=== PATIENT | male | born 1995 | race Hispanic/Latino ===

== ENCOUNTER 2025-04-13 14:32 | Emergency (ER) | payer OTHER ==
[2025-04-13] MEDS ORDERED: ONDANSETRON 4 MG/2 ML VIAL ONE (14:48)
[2025-04-13] MEDS ORDERED: NA CHLORIDE 0.9% 1,000 ML ONE (14:48)
[2025-04-13] MEDS ORDERED: MORPHINE 4 MG/ML SYR ONE (14:48)
[2025-04-13] MEDS ORDERED: CEFAZOLIN SODIUM 2 GM/VIAL ONE (14:49)
[2025-04-13] MEDS ORDERED: NA CHLORIDE 0.9% 100 ML ONE ×2 (14:49→14:52)
[2025-04-13] MEDS ORDERED: TRANEXAMIC ACID 1,000 MG/10 ML VIAL IV ONE (14:52)
[2025-04-13] MEDS ORDERED: LIDOCAINE 2% W/EPI 1:200,000 MPF 20 ML VIAL IM ONE (14:52)
[2025-04-13] MEDS ORDERED: NA CHLORIDE 0.9% 50 ML ONE (15:08)
[2025-04-13] MEDS ORDERED: PROMETHAZINE INJ 25 MG/ML AMP ONE (15:08)
[2025-04-13 15:09] LABS: Absolute Lymphocytes (CBC) 0.7 K/uL (0.7-4.9); Hematocrit 41.3 % (39.6-49.0); Hemoglobin 14.2 g/dL (13.6-17.9); MCH 30.3 pg (27.0-35.0); MCHC 34.4 g/dL (32.0-36.0); MCV 88.1 fL (80-100); MPV 7.9 fL (7.6-11.3); Nucleated RBC Absolute Count 0.0 (0-0); Nucleated Red Blood Cells % 0.3 % (0-0); RBC Red Blood Cell Count 4.69 M/uL (4.33-5.43); White Blood Count 14.50 thou/uL (4.3-10.9)
[2025-04-13 15:14] LABS: PT Prothrombin Time 13.1 SECONDS (10-13.0); Protime INR 1.16
[2025-04-13 15:25] LABS: ALT/SGPT 22.0 U/L (16-61); AST/SGOT 20.0 U/L (15-37); Albumin 3.9 g/dL (3.4-5.0); Albumin/Globulin Ratio 1.4 (1.1-1.8); Alkaline Phosphatase 96.0 U/L (45-117); Anion Gap 10.8 mEq/L (5.0-15.0); BUN Blood Urea Nitrogen 13.0 mg/dL (7-18); Globulin 2.8 g/dL (2.3-3.5); Glucose Level 112.0 mg/dL (74-106); Potassium 3.8 mEq/L (3.5-5.1)
--- NOTE | 2025-04-13 15:32 | ER ---
Nurse's Notes [facility] Name: Nick Robles Age: 29 yrs Sex: Male : 1995 Arrival Date: 04/13/2025 Time: 14:32 Bed 8 Private MD: Diagnosis: Fall (on)(from) incline-bed;Fracture of mandible-open, bleeding, communited fx Presentation: 04/13 14:35 Chief complaint: EMS states: Pt from [facility], states that he fell from bunk, ph c/o bilateral jaw pain, feels like it's broken in 2 places, bleeding noted from mouth, 1 gram IV Tylenol given. Care prior to arrival: None. Mechanism of Injury: Fall top bunk. Trauma event details: Injury occurred in the [facility], Injury occurred: in an institution. Injury occurred: April 13, 2025. 14:35 Acuity: KARLA 3 ph 14:35 Method Of Arrival: EMS: [facility] ph 14:40 Coronavirus screen: Vaccine status: Patient reports receiving the 2nd dose of the covid ph vaccine. Ebola Screen: No symptoms or risks identified at this time. Initial Sepsis Screen: Does the patient meet any 2 criteria? No. Patient's initial sepsis screen is negative. Does the patient have a suspected source of infection? No. Patient's initial sepsis screen is negative. Risk Assessment: Do you want to hurt yourself or someone else? Patient reports no desire to harm self or others. Onset of symptoms was April 13, 2025. Triage Assessment: 14:42 General: Appears in no apparent distress. uncomfortable, Behavior is calm, cooperative. ph Pain: Complains of pain in right jaw and left jaw. Neuro: Level of Consciousness is awake, alert, obeys commands, Oriented to person, place, time, situation. Cardiovascular: Capillary refill < 3 seconds in bilateral fingers. Respiratory: Airway is patent Respiratory effort is even, unlabored. Derm: Skin is pink, warm \T\ dry. Trauma Activation: Not Applicable Physician: ED Physician; Name: ; Notified At: ; Arrived At: Physician: General Surgeon; Name: ; Notified At: ; Arrived At: Physician: Radiology; Name: ; Notified At: ; Arrived At: Physician: Respiratory; Name: ; Notified At: ; Arrived At: Physician: Lab; Name: ; Notified At: ; Arrived At: Historical: - Allergies: 14:42 No Known Allergies; ph - PMHx: 14:42 Anxiety; ph - Immunization history:: Adult Immunizations up to date. - Infectious Disease History:: Denies. - Immunization history: Last tetanus immunization: - up to date. - Family history:: not pertinent. - Social history:: Smoking status: unknown. Screenin:[address] [facility] ED Fall Risk Assessment (Adult) History of falling in the last 3 months, ph including since admission Yes- single mechanical fall (1 pt) Confusion or Disorientation No (0 pts) Intoxicated or Sedated No (0 pts) Impaired Gait No (0 pts) Mobility Assist Device Used No (0 pt) Altered Elimination No (0 pt) Score/Fall Risk Level 0 - 2 = Low Risk Oriented to surroundings, Maintained a safe environment, Used ambulatory aids as needed (educated on \T\ assisted with). Abuse screen: Denies threats or abuse. Denies injuries from another. Nutritional screening: No deficits noted. Tuberculosis screening: No symptoms or risk factors identified. Primary Survey: 14:45 Uncontrolled hemorrhage is observed, assessment has been re-ordered to <C> ABC. A: The ph client is awake and alert. The airway is patent. Breathing/Chest: Spontaneous respiratory effort, equal unlabored respirations, breath sounds clear bilaterally, regular pattern, symmetrical chest rise and fall. Circulation: Hemorrhage: External hemorrhage noted. from mouth. Disability Pupils are equal, round, reactive to light and accommodation. Exposure/Environment: All clothing and personal items were removed. Forensic evidence collection is not deemed to be indicated at this time. Items placed in patient belonging bag. There is evidence of uncontrolled external hemorrhage. Provider notified immediately. Methods to control bleeding applied. Obvious injury(ies) are noted at this time: swelling to R jaw A warming method has been applied: A warm blanket has been provided to the patient. 16:09 Reassessment Alertness and Airway: Awake and alert. The airway is patent. Breathing: ph Spontaneous respiratory effort, equal unlabored respirations, breath sounds clear bilaterally, regular pattern with symmetrical chest rise and fall. Circulation: No external hemorrhage noted. Regular and strong central pulse, skin warm/dry/normal color. Disability: Pupils Pupils are equal, round, reactive to light and accomodation. Secondary Survey: 14:45 HEENT: Head Other swelling to R jaw, significant bleeding from mouth. ph Assessment: 15:00 General: SEE TRIAGE ASSESSMENT. ph Vital Signs: 14:40 BP 148 / 100; Pulse 59; Resp 18; Temp 97.8; Pulse Ox 97% on R/A; Weight 86.64 kg; ph Height 6 ft. 1 in. ; 16:03 BP 125 / 82; Pulse 59; Resp 16; Pulse Ox 98% on R/A; ph 14:40 Body Mass Index 25.20 (86.64 kg, 185.42 cm) ph Aleksandr Coma Score: 14:45 Eye Response: spontaneous(4). Motor Response: obeys commands(6). Verbal Response: ph oriented(5). Total: 15. 15:14 Eye Response: spontaneous(4). Motor Response: obeys commands(6). Verbal Response: jerardo oriented(5). Total: 15. 15:29 Eye Response: spontaneous(4). Motor Response: obeys commands(6). Verbal Response: jerardo oriented(5). Total: 15. 16:03 Eye Response: spontaneous(4). Motor Response: obeys commands(6). Verbal Response: ph oriented(5). Total: 15. Trauma Score (Adult): 14:45 Eye Response: spontaneous(1); Verbal Response: oriented(1); Motor Response: obeys ph commands(2); Systolic BP: > 89 mm Hg(4); Respiratory Rate: 10 to 29 per min(4); [place] Score: 15; Trauma Score: 12 16:03 Eye Response: spontaneous(1); Verbal Response: oriented(1); Motor Response: obeys ph commands(2); Systolic BP: > 89 mm Hg(4); Respiratory Rate: 10 to 29 per min(4); Aleksandr Score: 15; Trauma Score: 12 ED Course: 14:34 Patient arrived in ED. ph 14:35 Roberto Carlos Hood MD is Attending Physician. jerardo 14:40 Triage completed. ph 15:14 Marisela Shah, KARLA is Primary Nurse. cc6 15:53 Report given to Jerrell Hdz RN at [facility]. ll1 15:59 Initial lab(s) drawn, by ED staff, sent to lab. Maintain EMS IV. Dressing intact. Good ph blood return noted. Site clean \T\ dry. Gauge \T\ site: 18 LFA. Flushed with 10 mL NS. 16:02 Patient has correct armband on for positive identification. Bed in low position. Call ph light in reach. Side rails up X 1. Pulse ox on. NIBP on. Door closed. Noise minimized. Warm blanket given. 16:06 Patient maintains SpO2 saturation greater than 95% on room air. Thermoregulation: warm ph blanket given to patient. 16:07 Arm band placed on Patient placed in an exam room, on a stretcher, on pulse oximetry. ph 16:07 No provider procedures requiring assistance completed. Patient transferred, IV remains ph in place. 16:08 transfer to [facility] managed care initiated by Dr Hood, pt accepted in bd transfer to [facility] by dr Mendenhall to 708 bed 1 admin approval given by Kirill Jensen. 16:21 Provided Education on: Need for transfer. ph Administered Medications: 14:50 Drug: NS 0.9% IV 1000 ml IV at 1 bolus Per protocol; to be given as a bolus over 60 cc6 minutes Route: IV; Rate: 1 bolus; Site: right forearm; 16:08 Follow up: Response: No adverse reaction; IV Status: Infusion continued upon transfer ph 14:50 Drug: morphine IVP or IV 4 mg IVP once over 4 mins Route: IVP; Infused Over: 4 mins; cc6 Site: left forearm; 16:08 Follow up: Response: No adverse reaction ph 14:50 Drug: Ondansetron IVP 8 mg IVP once; over 2 minutes Route: IVP; Site: left forearm; cc6 16:08 Follow up: Response: No adverse reaction ph 14:50 Drug: tranexamic acid IV 1000 mg IV at per protocol once; administer at a rate not to cc6 exceed 100 mg per min Route: IV; Rate: per protocol; Site: left forearm; 16:08 Follow up: Response: No adverse reaction; IV Status: Completed infusion ph 15:15 Drug: Promethazine IM 25 mg IM once {Note: mixed with [address] Hood.} cc6 Route: IM; Site: left deltoid; 16:08 Follow up: Response: No adverse reaction ph 15:32 Drug: ceFAZolin IVPB 2 grams IVPB once over 30 mins; (mix in 100 mL NS) Route: IVPB; ph Infused Over: 30 mins; Site: left forearm; 16:08 Follow up: Response: No adverse reaction; IV Status: Completed infusion ph Medication: 16:04 VIS not applicable for this client. ph Intake: 16:20 IV: 500ml (IV Fluid); Total: 500ml. ph Outcome: 15:31 ER care complete, transfer ordered by MD. kurtz 16:20 Transferred by ground [facility] to [facility], Transfer ph form completed. 16:20 Condition: stable 16:20 Instructed on the need for transfer, 16:21 Patient's length of stay was not longer than 2 hours. ph 16:21 Patient left the ED. ph Signatures: Kimberli Madrid Corey, MD MD cha Hall, Patricia, RN RN Marya Rogel RN RN ll1 Marisela Shah RN RN cc6
--- NOTE | 2025-04-13 15:32 | EDPHYS ---
Physician Documentation [facility] Name: Nick Robles Age: 29 yrs Sex: Male : 1995 Arrival Date: 04/13/2025 Time: 14:32 Bed 8 Private MD: ED Physician Roberto Carlos Hood HPI: 04/13 15:14 This 29 yrs old Male presents to ER via EMS with complaints of Jaw Injury. jerardo 15:14 The patient or guardian reports deformity, injury, pain, swelling, tenderness. The jerardo complaints affect the chin and right jaw. Context of injury: The problem was sustained at [facility]. Onset: The symptoms/episode began/occurred just prior to arrival. Associated signs and symptoms: Loss of consciousness: This patient did not experience any loss of consciousness. Pertinent positives: heavy oral bleeding. Severity of symptoms: At their worst the symptoms were moderate, in the emergency department the symptoms are unchanged. The patient has not experienced similar symptoms in the past. Historical: - Allergies: 14:42 No Known Allergies; ph - PMHx: 14:42 Anxiety; ph - Immunization history:: Adult Immunizations up to date. - Infectious Disease History:: Denies. - Immunization history: Last tetanus immunization: - up to date. - Family history:: not pertinent. - Social history:: Smoking status: unknown. ROS: 15:14 Constitutional: Negative for fever, chills, and weight loss, Eyes: Negative for injury, jerardo pain, redness, and discharge, Neck: Negative for injury, pain, and swelling, Cardiovascular: Negative for chest pain, palpitations, and edema, Respiratory: Negative for shortness of breath, cough, wheezing, and pleuritic chest pain, Abdomen/GI: Negative for abdominal pain, nausea, vomiting, diarrhea, and constipation, Back: Negative for injury and pain, : Negative for injury, bleeding, discharge, and swelling, MS/Extremity: Negative for injury and deformity, Skin: Negative for injury, rash, and discoloration, Neuro: Negative for headache, weakness, numbness, tingling, and seizure, Psych: Negative for depression, anxiety, suicide ideation, homicidal ideation, and hallucinations, Allergy/Immunology: Negative for hives, rash, and allergies, Endocrine: Negative for neck swelling, polydipsia, polyuria, polyphagia, and marked weight changes, Hematologic/Lymphatic: Negative for swollen nodes, abnormal bleeding, and unusual bruising, 15:14 ENT: Positive for difficulty swallowing, Teeth pain bleeding, Exam: 15:14 Constitutional: This is a well developed, well nourished patient who is awake, alert, jerardo and in no acute distress. Eyes: Pupils equal round and reactive to light, extra-ocular motions intact. Lids and lashes normal. Conjunctiva and sclera are non-icteric and not injected. Cornea within normal limits. Periorbital areas with no swelling, redness, or edema. ENT: Nares patent. No nasal discharge, no septal abnormalities noted. Tympanic membranes are normal and external auditory canals are clear. Oropharynx with no redness, swelling, or masses, exudates, or evidence of obstruction, uvula midline. Mucous membranes moist. Neck: Trachea midline, no thyromegaly or masses palpated, and no cervical lymphadenopathy. Supple, full range of motion without nuchal rigidity, or vertebral point tenderness. No Meningismus. Chest/axilla: Normal chest wall appearance and motion. Nontender with no deformity. No lesions are appreciated. Cardiovascular: Regular rate and rhythm with a normal S1 and S2. No gallops, murmurs, or rubs. Normal PMI, no JVD. No pulse deficits. Respiratory: Lungs have equal breath sounds bilaterally, clear to auscultation and percussion. No rales, rhonchi or wheezes noted. No increased work of breathing, no retractions or nasal flaring. Abdomen/GI: Soft, non-tender, with normal bowel sounds. No distension or tympany. No guarding or rebound. No evidence of tenderness throughout. Back: No spinal tenderness. No costovertebral tenderness. Full range of motion. Male : Normal genitalia with no discharge or lesions. Skin: Warm, dry with normal turgor. Normal color with no rashes, no lesions, and no evidence of cellulitis. MS/ Extremity: Pulses equal, no cyanosis. Neurovascular intact. Full, normal range of motion., bilateral aka Neuro: Awake and alert, GCS 15, oriented to person, place, time, and situation. Cranial nerves II-XII grossly intact. Motor strength 5/5 in all extremities. Sensory grossly intact. Cerebellar exam normal. Normal gait. Psych: Awake, alert, with orientation to person, place and time. Behavior, mood, and affect are within normal limits. 15:14 Head/face: Noted is 15:14 Head/face: Noted is hematoma, swelling, tenderness, heavy oral bleeding, mouth packed, gauze soaked in lido with epi. Vital Signs: 14:40 BP 148 / 100; Pulse 59; Resp 18; Temp 97.8; Pulse Ox 97% on R/A; Weight 86.64 kg; ph Height 6 ft. 1 in. ; 16:03 BP 125 / 82; Pulse 59; Resp 16; Pulse Ox 98% on R/A; ph 14:40 Body Mass Index 25.20 (86.64 kg, 185.42 cm) ph [place] Coma Score: 14:45 Eye Response: spontaneous(4). Motor Response: obeys commands(6). Verbal Response: ph oriented(5). Total: 15. 15:14 Eye Response: spontaneous(4). Motor Response: obeys commands(6). Verbal Response: jerardo oriented(5). Total: 15. 15:29 Eye Response: spontaneous(4). Motor Response: obeys commands(6). Verbal Response: jerardo oriented(5). Total: 15. 16:03 Eye Response: spontaneous(4). Motor Response: obeys commands(6). Verbal Response: ph oriented(5). Total: 15. Trauma Score (Adult): 14:45 Eye Response: spontaneous(1); Verbal Response: oriented(1); Motor Response: obeys ph commands(2); Systolic BP: > 89 mm Hg(4); Respiratory Rate: 10 to 29 per min(4); Aleksandr Score: 15; Trauma Score: 12 16:03 Eye Response: spontaneous(1); Verbal Response: oriented(1); Motor Response: obeys ph commands(2); Systolic BP: > 89 mm Hg(4); Respiratory Rate: 10 to 29 per min(4); [place] Score: 15; Trauma Score: 12 MDM: 14:35 Medical Screening Exam initiated jerardo 15:29 Differential diagnosis: Contusion of Hematoma on Laceration of Intracranial bleed- jerardo Concussion cerebral contusion. Data reviewed: vital signs, nurses notes, lab test result(s), radiologic studies, CT scan, ct pending. Consideration of Admission/Observation Escalation of care including admission/observation considered. I considered the following discharge prescriptions or medication management in the emergency department Medications were administered in the Emergency Department. See MAR. Independent interpretation of the following test(s) in the Emergency Department CT Scan: My interpretation is pending. Test considered but Not performed: EKG: no ekg. Historians other than the Patient: EMS: ems, tdc guards. Care significantly affected by the following chronic conditions: none. 04/13 14:36 Order name: CBC with Diff jerardo 04/13 14:36 Order name: CMP jerardo 04/13 14:36 Order name: PT-INR jerardo 04/13 15:14 Order name: CBC Smear Scan EDMS 04/13 14:36 Order name: NPO; Complete Time: 14:43 jerardo Administered Medications: 14:50 Drug: NS 0.9% IV 1000 ml IV at 1 bolus Per protocol; to be given as a bolus over 60 cc6 minutes Route: IV; Rate: 1 bolus; Site: right forearm; 16:08 Follow up: Response: No adverse reaction; IV Status: Infusion continued upon transfer ph 14:50 Drug: morphine IVP or IV 4 mg IVP once over 4 mins Route: IVP; Infused Over: 4 mins; cc6 Site: left forearm; 16:08 Follow up: Response: No adverse reaction ph 14:50 Drug: Ondansetron IVP 8 mg IVP once; over 2 minutes Route: IVP; Site: left forearm; cc6 16:08 Follow up: Response: No adverse reaction ph 14:50 Drug: tranexamic acid IV 1000 mg IV at per protocol once; administer at a rate not to cc6 exceed 100 mg per min Route: IV; Rate: per protocol; Site: left forearm; 16:08 Follow up: Response: No adverse reaction; IV Status: Completed infusion ph 15:15 Drug: Promethazine IM 25 mg IM once {Note: mixed with [address] Hood.} cc6 Route: IM; Site: left deltoid; 16:08 Follow up: Response: No adverse reaction ph 15:32 Drug: ceFAZolin IVPB 2 grams IVPB once over 30 mins; (mix in 100 mL NS) Route: IVPB; ph Infused Over: 30 mins; Site: left forearm; 16:08 Follow up: Response: No adverse reaction; IV Status: Completed infusion ph Disposition Summary: 04/13/25 15:31 Transfer Ordered Notes: Transfer Location: [facility] jerardo Reason: Higher level of care jerardo Condition: Fair jerardo Problem: new jerardo Symptoms: have improved jerardo Accepting Physician: [facility](04/13/25 16:21) ph Diagnosis - Fall (on)(from) incline - bed jerardo - Fracture of mandible - open, bleeding, communited fx jerardo Forms: - Medication Reconciliation Form jerardo - SBAR form jerardo Critical care time excluding procedures: 15:31 Critical care time: Bedside Care: 25 minutes, Consultation: 15 minutes. Total time: 40 jerardo minutes Signatures: Dispatcher [employer] EDMS Roberto Carlos Hood MD MD cha Hall, Patricia, RN RN ph Marisela Shah, RN RN cc6 Corrections: (The following items were deleted from the chart) 14:36 14:36 CBC+H.LAB.BRZ ordered. EDMS EDMS 14:36 14:36 COMPREHENSIVE METABOLIC PANEL+C.LAB.BRZ ordered. EDMS EDMS 14:36 14:36 PROTIME (+INR)+COAG.LAB.BRZ ordered. EDMS EDMS 14:36 14:36 Facial Bones W/ MPR+CT.RAD.BRZ ordered. EDMS EDMS 14:37 14:36 Head C Spine MPR Wo Con+CT.RAD.BRZ ordered. EDMS EDMS 16:21 15:31 [facility] jerardo ph
[2025-04-13 15:38] LABS: Blood Morphology Comment NOT SEEN (NOT SEEN); White Blood Cell Scan OK (OK)
[2025-04-13 16:47] VITALS: TEMP 97.8
[2025-04-13 16:48] VITALS: BP 125/82; O2SAT 98
== END 2025-04-13 16:21 | disposition short-term general hospital (02) ==
LOC: ER 14:32
DX: S02.69XB Fracture of mandible of other specified site, initial encounter for open fracture (principal); W06.XXXA Fall from bed, initial encounter; Y92.149 Unspecified place in prison as the place of occurrence of the external cause
CPT/HCPCS: 96365; 85025; 36415; 85610; 80053; 96375; 96372; 99285; J2405; J2550; J7030